=== PATIENT | female | born 1975 | race Caucasian/White ===

== ENCOUNTER 2021-07-10 17:39 | Emergency (ER) | payer BC, SELFPAY ==
--- NOTE | ~2021-07-10 | XR_ITS ---
EXAMINATION: XR elbow LT min 3V EXAM DATE: 07/10/2021 18:10 INDICATION: Fall On Sidewalk Onto Elbow, Pain Radiates Down To Wrist. TECHNIQUE: Left elbow frontal, lateral with flexion, and oblique projections obtained and reviewed. There is no prior study for comparison. FINDINGS: Left elbow anterior humeral line intact. There is an elbow joint effusion. There is acut e minimally depressed fracture at the radial head along its dorsal lateral side identified on oblique projection. No other acute findings. IMPRESSION: 1. Small mildly depressed left radial head fracture. 2. Joint effusion. Reviewed, dictated and finalized at location A. [facility]
--- NOTE | ~2021-07-10 | XR_ITS ---
EXAMINATION: XR wrist LT min 3V EXAM DATE: 07/10/2021 18:14 INDICATION: Fall On Sidewalk, Lateral/Anterior: Swelling/Pain . TECHNIQUE: Left wrist frontal, frontal with ulnar deviation, oblique and lateral projections obtained and reviewed. There is no prior study for comparison. 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 There is possible acute closed posttraumatic nondisplaced distal radial metaphyseal fracture into the radiocarpal joint . Please clinically correlate. IMPRESSION: 1. Possible acute nondisplaced distal radial intra-articular fracture. Reviewed, dictated and finalized at location A. I[facility] SEWER
[2021-07-10 17:42] VITALS: BP 149/84; PULSE 80; RESP 18; TEMP 36.6; O2SAT 100
[2021-07-10] MEDS: HYDROcodone/acetaminophen (*CRX) 5-325 MG TABLET 1 TAB PO (18:44)
--- NOTE | 2021-07-10 19:23 | ED.UPPEXIN ---
HPI - Extremity Injury (Upper) General Chief Complaint: Extremity Injury, Upper Stated Complaint: Fall/ left arm pain Time Seen by Provider: 07/10/21 17:55 Source: patient Mode of arrival: ambulatory Limitations: no limitations History of Present Illness HPI narrative: 46 old female Here for an arm injury Patient was walking outside and tripped over a crack in the sidewalk and landed on her left arm She complains of pain at the wrist/hand and at the elbow as well No obvious deformities, no lacerations She did not injure anything else Related Data Home Medications Medication Instructions Recorded Confirmed clonazepam 0.25 mg disintegrating 0.25 mg PO DAILY 08/12/20 12/23/20 tablet sertraline 25 mg tablet 25 mg PO DAILY 08/12/20 12/23/20 Allergies Allergy/AdvReac Type Severity Reaction Status Date / Time Penicillins Allergy Unknown mouth and Verified 07/10/21 18:48 throat swelleing Sulfa (Sulfonamide Allergy Unknown Hives, Verified 07/10/21 18:48 Antibiotics) swelleing Review of Systems Review of Systems: All systems reviewed & are unremarkable except as noted in HPI and below Constitutional: Constitutional: Denies headache(s) ENT: Denies headache(s) Cardiovascular: Cardiovascular: Denies dyspnea Genitourinary: Genitourinary: Denies urinary frequency and Denies dysuria Musculoskeletal: Musculoskeletal: Denies back pain, Denies deformity, Reports arthralgias, Reports joint swelling and Denies numbness Integumentary/Breasts: Skin/Breast: Denies rash and Denies wounds Neurologic: Denies dizziness, Denies syncope, Denies headache(s), Denies focal weakness and Denies numbness [facility] Past Medical History Medical History Adult BMI 25.0-25.9 kg/sq m Anxiety Anxiety disorder, unspecified delivery delivered Deviated septum Dupuytrens contracture Essential (primary) hypertension Rheumatoid arthritis 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 Social History Social History Smoking status: Never smoker Second hand tobacco smoke exposure: No Alcohol intake: never Substance use: never Substance use type: does not use Exam Const: General: cooperative, healthy appearing, no acute distress and alert Orientation/consciousness: patient oriented x3 (alert) HENMT: Head: normal to inspection, normocephalic and atraumatic Eyes: Conjunctivae: conjunctivae normal EOM: EOMs intact bilaterally Neck: Neck: normal visual inspection, supple and no JVD Resp: Effort & Inspection: normal respiratory effort and not labored Auscultation: other (BS =) Skin: General skin exam: normal color and no rashes or lesions noted Neuro: General: patient oriented x3 (alert) Speech: normal speech Extrem: General: normal to inspection Other: Left arm has no visible deformities or bruising or lacerations She has tenderness of the elbow which is more or less adjacent to the olecranon process laterally but really does not have tenderness in the in the area of the radial head At the wrist there is no swelling or deformity and the distal radius is nontender, however she does have some snuffbox tenderness and some pain with axial loading of her thumb Psych: Affect: normal affect Course Course Emergency Course: Discussed with the patient that the reported x-ray findings are not necessarily congruent with the areas of tenderness found on her exam and that we will sling her and splint her wrist a
[2021-07-10 20:23] VITALS: BP 127/94; PULSE 66; RESP 18; O2SAT 98
== END 2021-07-10 20:24 | disposition home or self-care (01) ==
PROVIDERS: Emergency Provider Emergency Medicine; PCP Family Medicine
DX: S52.125A Nondisplaced fracture of head of left radius, initial encounter for closed fracture (principal); I10 Essential (primary) hypertension; M06.9 Rheumatoid arthritis, unspecified; W01.0XXA Fall on same level from slipping, tripping and stumbling without subsequent striking against object, initial encounter
CPT/HCPCS: 29125; 73080; 73110; 99284; A4565; A9270